=== PATIENT | male | born 1980 | race Caucasian/White ===

== ENCOUNTER 2024-07-12 11:19 | Inpatient (IN) | payer MEDICAID, OTHER ==
[2024-07-12 12:31] LABS: Basophils % (A) 0 %; Eosinophils # (A) 0.1 k/uL (0-0.7); Eosinophils % (A) 1 %; HCT 44.4 % (39.0-53.0); HGB 14.8 gm/dL (13.0-17.5); Lymphocytes # (A) 1.4 k/uL (1.0-4.8); Lymphocytes % (A) 13 %; MCH 32.9 pg (25.0-35.0); MCHC 33.3 g/dL (31.0-37.0); MCV 98.6 fL (80.0-100.0); Mean Platelet Volume 7.1; Monocytes # (A) 0.5 k/uL (0-1.0); Monocytes % (A) 4 %; Neutrophils # (A) 8.4 k/uL (1.3-7.7); Neutrophils % (A) 79 %; Platelet Count 345 k/uL (150-450); RDW 12.3 % (11.5-15.5); WBC 10.7 k/uL (3.8-10.6)
[2024-07-12 12:31] LABS: Amphetamine Screen,Urine Not Detected (NotDetected); Barbiturate Screen,Urine Not Detected (NotDetected); Benzodiazepines Screen,Urine Not Detected (NotDetected); Cocaine Screen,Urine Not Detected (NotDetected); Methadone Screen, Urine Not Detected (NotDetected); Opiate Screen,Urine Not Detected (NotDetected); Oxycodone Screen, Urine Not Detected (NotDetected); Phencyclidine Screen,Urine Not Detected (NotDetected); Tricyclic Antidepressant,Urine Detected (NotDetected); Urn Cannabinoid Scrn Not Detected (NotDetected)
[2024-07-12 12:32] LABS: Appearance,Urine Clear (Clear); Bilirubin,Urine Negative (Negative); Blood,Urine Negative (Negative); Color,Urine Colorless; Glucose,Urine (UA) Negative (Negative); Ketones,Urine Negative (Negative); Leukocyte Esterase,Urine Negative (Negative); Nitrite,Urine Negative (Negative); PH, Urine 6.5 (5.0-8.0); Protein,Urine Negative (Negative); Specific Gravity,Urine 1.007 (1.001-1.035); Urobilinogen,Urine <2.0 mg/dL (<2.0)
[2024-07-12 12:46] LABS: ALT 28 U/L (4-49); AST 26 U/L (17-59); African American GFR (CKD) >90 (>60 ml/min/1.73 sqM); Albumin 4.3 g/dL (3.5-5.0); Alkaline Phosphatase 84 U/L (38-126); Anion Gap 4 mmol/L; Blood Urea Nitrogen 5 mg/dL (9-20); Calcium 9.7 mg/dL (8.4-10.2); Carbon Dioxide 24 mmol/L (22-30); Chloride 111 mmol/L (98-107); Glucose 103 mg/dL (74-99); Non-African American GFR(CKD) >90 (>60 ml/min/1.73 sqM); Potassium 4.1 mmol/L (3.5-5.1); Sodium 139 mmol/L (137-145); Total Bilirubin 0.6 mg/dL (0.2-1.3); Total Protein 6.7 g/dL (6.3-8.2)
[2024-07-12] MEDS: LORazepam 2 MG/ML INJ IV STA (12:56)
[2024-07-12] MEDS: SODIUM CHLORIDE 0.9% 1,000 ML IV STA (12:56)
[2024-07-12] MEDS: AMIODARONE 200 MG TAB PO STA (12:56)
--- NOTE | 2024-07-12 12:56 | XR ---
EXAMINATION TYPE: XR chest 2V DATE OF EXAM: 07/12/2024 12:42 PM CLINICAL INDICATION: Male, 44 years old with history of afib; [facility] COMPARISON: None TECHNIQUE: XR chest 2V Frontal view of the chest. FINDINGS: Lungs/Pleura: There is no evidence of pleural effusion, focal consolidation, or pneumothorax. Pulmonary vascularity: Unremarkable. Heart/mediastinum: Cardiomediastinal silhouette is unremarkable. Musculoskeletal: No acute osseous pathology. IMPRESSION: No acute cardiopulmonary disease/process. [facility], , 07/12/2024 12:54 PM
[2024-07-12] MEDS ORDERED: LORazepam 2 MG/ML INJ IV PRN ×3 (14:38)
--- NOTE | 2024-07-12 14:39 | ED ---
General Adult HPI - General Chief complaint: Psychiatric Symptoms Stated complaint: mental health Time Seen by Provider: 07/12/24 11:29 Source: patient, RN notes reviewed, old records reviewed Mode of arrival: ambulatory Limitations: no limitations - History of Present Illness Initial comments: Patient is a 44-year-old male who presents emergency department for psychiatric evaluation. He is having suicidal ideations with plans of cutting his own wrist. States has been worse over the last few days. Has had prior attempt of self injuring behavior. Denies drug use. Is currently in toxic with alcohol. Has a history of atrial fibrillation hypertension is noncompliant with medications. States he is on amiodarone 200 mg daily which will be provided to him. Has no other acute complaints. Denies homicidal ideations, times complaints. Denies hallucinations. Presents for further evaluation. No history of alcohol withdrawals. - Related Data Home Medications Medication Instructions Recorded Confirmed Atorvastatin [Lipitor] 20 mg PO HS 07/12/24 07/12/24 Hydrocortisone Cream 1 applic TOPICAL QID PRN 07/12/24 07/12/24 [Hydrocortisone 2.5% Cream] [place] Carbonate ER [Lithobid] 450 mg PO BID 07/12/24 07/12/24 Lurasidone HCl [Latuda] 120 mg PO W/SUPPER 07/12/24 07/12/24 Metoprolol Succinate [Toprol XL] 50 mg PO DAILY 07/12/24 07/12/24 Naloxone HCl [Narcan] 4 mg NASAL DIRECTED PRN 07/12/24 07/12/24 Nicotine 21Mg/24Hr Patch [Habitrol] 1 patch TRANSDERM DAILY PRN 07/12/24 07/12/24 QUEtiapine FUMARATE [SEROquel] 600 mg PO HS 07/12/24 07/12/24 QUEtiapine [SEROquel] 100 mg PO BID@0900,1500 07/12/24 07/12/24 Sennosides [Senokot] 8.6 mg PO DAILY 07/12/24 07/12/24 Tamsulosin HCl [Flomax] 0.4 mg PO DAILY 07/12/24 07/12/24 buPROPion SR [Wellbutrin SR] 300 mg PO DAILY 07/12/24 07/12/24 polyethylene glycoL 3350 [Miralax] 17 gm PO BID PRN 07/12/24 07/12/24 Amiodarone [Cordarone] 200 mg PO DAILY 07/13/24 07/13/24 Allergies Allergy/AdvReac Type Severity Reaction Status Date / Time No Known Allergies Allergy Verified 07/12/24 14:22 Review of Systems ROS Statement: Those systems with pertinent positive or pertinent negative responses have been documented in the HPI. Review of Systems: CONST: Denies fever EYES: Denies blurry vision ENT: Denies nasal congestion C/V: Denies Chest pain RESP: Denies shortness of breath GI: Denies abdominal pain : Denies dysuria SKIN: Denies rash. MSK: Denies joint pain. NEURO: Denies headache ROS Other: All systems not noted in ROS Statement are negative. Past Medical History Past Medical History: Atrial Fibrillation History of Any Multi-Drug Resistant Organisms: None Reported Past Surgical History: Cholecystectomy Past Psychological History: Anxiety, Depression, PTSD Smoking Status: Current every day smoker Past Alcohol Use History: None Reported Past Drug Use History: None Reported General Exam - General Exam Comments Initial Comments: General: Appears in toxic with alcohol. No evidence of alcohol withdrawals. HEAD: Normal with no signs of head trauma. EYES: PERRLA, EOMI, conjunctiva normal, no discharge. ENT: Hearing grossly intact, normal oropharynx. RESPIRATORY: Clear breath sounds bilaterally. No wheezes, rales, or rhonchi. C/V: Tachycardic. S1 and S2 auscultated, no edema, peripheral pulses 2+ and intact throughout ABD: Abd is soft, nontender, nondistended EXT: no obvious deformity SKIN: No rashes or lesions observed on exposed skin. NEURO: Alert and oriented x 4. Limitations: no limitations Course Vital Signs 07/12/24 07/12/24 07/12/24 11:22 12:35 12:51 Temperature 97.7 F 97.6 F Pulse Rate 130 H 105 H 105 H Respiratory 18 18 19 Rate Blood Pressure 145/89 122/84 123/97 O2 Sat by Pulse 98 100 98 Oximetry 07/12/24 16:30 Temperature 97.9 F Pulse Rate 103 H Respiratory 16 Rate Blood Pressure 124/90 O2 Sat by Pulse 99 Oximetry Medical Decision Making - Medical Decision Making Was pt. sent in by a medical professional or institution (, PA, STRIKE PLATE ATTACHER, urgent care, hospital, or skilled nursing...) When possible be specific @ -No Did you speak to anyone other than the patient for history (EMS, parent, family, police, friend...)? What history was obtained from this source @ -No Did you review nursing and triage notes (agree or disagree)? Why? @ -I reviewed and agree with nursing and triage notes Were old charts reviewed (outside hosp., previous admission, EMS record, old EKG, old radiological studies, urgent care reports/EKG's, skilled nursing records)? Report findings @ -No old charts were reviewed Differential Diagnosis (chest pain, altered mental status, abdominal pain women, abdominal pain men, vaginal bleeding, weakness, fever, dyspnea, syncope, headache, dizziness, GI bleed, back pain, seizure, CVA, palpatations, mental health, musculoskeletal)? @ -Differential Mental Health Depression, anxiety, bipolar, psychosis, schizophrenia, borderline personality, situational depression, adjustment disorder, behavioral disorder, brain tumor, malingering, substance abuse, encephalopathy, medication reaction, dementia, hypothyroidism, degenerative neurologic disorder, lupus.... This is not meant to be all-inclusive list EKG interpreted by me (3pts min.). @ -As above X-rays interpreted by me (1pt min.). @ -Chest x-ray shows no obvious acute cardiopulmonary process. CT interpreted by me (1pt min.). @ -None done U/S interpreted by me (1pt. min.). @ -None done What testing was considered but not performed or refused? (CT, X-rays, U/S, labs)? Why? @ -None What meds were considered but not given or refused? Why? @ -None Did you discuss the management of the patient with other professionals (professionals i.e. , PA, STRIKE PLATE ATTACHER, lab, RT, psych nurse, aids social worker, community relations liaison, teacher, uniform patrol police officer, caser shoe parts)? Give summary @ -EPS notified of the consult. Was smoking cessation discussed for >3mins.? @ -No Was critical care preformed (if so, how long)? @ -No Were there social determinants of health that impacted care today? How? (Homelessness, low income, unemployed, alcoholism, drug addiction, transportation, low edu. Level, literacy, decrease access to med. care, senior living, rehab)? @ -No Was there de-escalation of care discussed even if they declined (Discuss DNR or withdrawal of care, Hospice)? DNR status @ -No What co-morbidities impacted this encounter? (DM, HTN, Smoking, COPD, CAD, Cancer, CVA, ARF, Chemo, Hep., AIDS, mental health diagnosis, sleep apnea, morbid obesity)? @ -None Was patient admitted / discharged? Hospital course, mention meds given and route, prescriptions, significant lab abnormalities, going to OR and other pertinent info. @ -Patient presents emergency department complaining of suicidal ideations. Is tachycardic. Also acutely toxic with alcohol. Sitter ordered. Suicide precautions ordered. We will obtain basic labs. He was in agreement this plan. Given a dose of his normal amiodarone as well as a dose of Ativan and fluids. Laboratory studies are unremarkable. EKG shows sinus tachycardia. No evidence of atrial fibrillation. I discussed results with the patient. He will be medically cleared when sober. Patient's BAT is elevated at 0.225. EPS will evaluate the patient when he is sober. Disposition pending EPS evaluation. Patient placed on CIWA protocol. Undiagnosed new problem with uncertain prognosis? @ -No Drug Therapy requiring intensive monitoring for toxicity (Heparin, Nitro, Insulin, Cardizem)? @ -No Were any procedures done? @ -No Diagnosis/symptom? @ -Alcohol intoxication, suicidal ideation Acute, or Chronic, or Acute on Chronic? @ -Acute Uncomplicated (without systemic symptoms) or Complicated (systemic symptoms)? @ -Complicated Side effects of treatment? @ -No Exacerbation, Progression, or Severe Exacerbation? @ -No Poses a threat to life or bodily function? How? (Chest pain, [place], MT, pneumonia, PE, COPD, DKA, ARF, appy, cholecystitis, CVA, Diverticulitis, Homicidal, Suici laure, threat to staff... and all critical care pts) @ -Potentially, yes - Lab Data Result diagrams: 07/12/24 12:24 07/12/24 12:24 Lab Results 07/12/24 07/12/24 07/12/24 Range/Units 11:50 11:50 12:24 WBC 10.7 H (3.8-10.6) k/uL RBC 4.50 (4.30-5.90) m/uL Hgb 14.8 (13.0-17.5) gm/dL Hct 44.4 (39.0-53.0) % MCV 98.6 (80.0-100.0) fL MCH 32.9 (25.0-35.0) pg MCHC 33.3 (31.0-37.0) g/dL RDW 12.3 (11.5-15.5) % Plt Count 345 (150-450) k/uL MPV 7.1 Neutrophils % 79 % Lymphocytes % 13 % Monocytes % 4 % Eosinophils % 1 % Basophils % 0 % Neutrophils # 8.4 H (1.3-7.7) k/uL Lymphocytes # 1.4 (1.0-4.8) k/uL Monocytes # 0.5 (0-1.0) k/uL Eosinophils # 0.1 (0-0.7) k/uL Basophils # 0.0 (0-0.2) k/uL Sodium (137-145) mmol/L Potassium (3.5-5.1) mmol/L Chloride (98-107) mmol/L Carbon Dioxide (22-30) mmol/L Anion Gap mmol/L BUN (9-20) mg/dL Creatinine (0.66-1.25) mg/dL Est GFR (CKD-EPI)AfAm (>60 ml/min/1.73 sqM) Est GFR (CKD-EPI)NonAf (>60 ml/min/1.73 sqM) Glucose (74-99) mg/dL Calcium (8.4-10.2) mg/dL Magnesium (1.6-2.3) mg/dL Total Bilirubin (0.2-1.3) mg/dL AST (17-59) U/L ALT (4-49) U/L Alkaline Phosphatase (38-126) U/L Total Protein (6.3-8.2) g/dL Albumin (3.5-5.0) g/dL Urine Color Colorless Urine Appearance Clear (Clear) Urine pH 6.5 (5.0-8.0) Ur Specific [place] 1.007 (1.001-1.035) Urine Protein Negative (Negative) Urine Glucose (UA) Negative (Negative) Urine Ketones Negative (Negative) Urine Blood Negative (Negative) Urine Nitrite Negative (Negative) Urine Bilirubin Negative (Negative) Urine Urobilinogen <2.0 (<2.0) mg/dL Ur Leukocyte Esterase Negative (Negative) Urine Opiates Screen Not Detected (NotDetected) Ur Oxycodone Screen Not Detected (NotDetected) Urine Methadone Screen Not Detected (NotDetected) Ur Barbiturates Screen Not Detected (NotDetected) U Tricyclic Antidepress Detected H (NotDetected) Ur Phencyclidine Scrn Not Detected (NotDetected) Ur Amphetamines Screen Not Detected (NotDetected) U Methamphetamines Scrn Not Detected (NotDetected) U Benzodiazepines Scrn Not Detected (NotDetected) Urine Cocaine Screen Not Detected (NotDetected) U Marijuana (THC) Screen Not Detected (NotDetected) SARS-CoV-2 (PCR) (Not Detectd) 07/12/24 07/12/24 Range/Units 12:24 20:38 WBC (3.8-10.6) k/uL RBC (4.30-5.90) m/uL Hgb (13.0-17.5) gm/dL Hct (39.0-53.0) % MCV (80.0-100.0) fL MCH (25.0-35.0) pg MCHC (31.0-37.0) g/dL RDW (11.5-15.5) % Plt Count (150-450) k/uL MPV Neutrophils % % Lymphocytes % % Monocytes % % Eosinophils % % Basophils % % Neutrophils # (1.3-7.7) k/uL Lymphocytes # (1.0-4.8) k/uL Monocytes # (0-1.0) k/uL Eosinophils # (0-0.7) k/uL Basophils # (0-0.2) k/uL Sodium 139 (137-145) mmol/L Potassium 4.1 (3.5-5.1) mmol/L Chloride 111 H (98-107) mmol/L Carbon Dioxide 24 (22-30) mmol/L Anion Gap 4 mmol/L BUN 5 L (9-20) mg/dL Creatinine 0.84 (0.66-1.25) mg/dL Est GFR (CKD-EPI)AfAm >90 (>60 ml/min/1.73 sqM) Est GFR (CKD-EPI)NonAf >90 (>60 ml/min/1.73 sqM) Glucose 103 H (74-99) mg/dL Calcium 9.7 (8.4-10.2) mg/dL Magnesium 2.0 (1.6-2.3) mg/dL Total Bilirubin 0.6 (0.2-1.3) mg/dL AST 26 (17-59) U/L ALT 28 (4-49) U/L Alkaline Phosphatase 84 (38-126) U/L Total Protein 6.7 (6.3-8.2) g/dL Albumin 4.3 (3.5-5.0) g/dL Urine Color Urine Appearance (Clear) Urine pH (5.0-8.0) Ur Specific [place] (1.001-1.035) Urine Protein (Negative) Urine Glucose (UA) (Negative) Urine Ketones (Negative) Urine Blood (Negative) Urine Nitrite (Negative) Urine Bilirubin (Negative) Urine Urobilinogen (<2.0) mg/dL Ur Leukocyte Esterase (Negative) Urine Opiates Screen (NotDetected) Ur Oxycodone Screen (NotDetected) Urine Methadone Screen (NotDetected) Ur Barbiturates Screen (NotDetected) U Tricyclic Antidepress (NotDetected) Ur Phencyclidine Scrn (NotDetected) Ur Amphetamines Screen (NotDetected) U Methamphetamines Scrn (NotDetected) U Benzodiazepines Scrn (NotDetected) Urine Cocaine Screen (NotDetected) U Marijuana (THC) Screen (NotDetected) SARS-CoV-2 (PCR) Not Detected (Not Detectd) - EKG Data -: EKG Interpreted by Me EKG Comments: 12-lead Electrocardiogram Interpretation Note EKG was reviewed and interpreted by myself. 12-lead ECG performed at 1215 is interpreted by me as revealing sinus tachycardia at a rate of 111 beats per minute. [place] is normal. [place] interval is 152 ms, QRS duration is 90 ms, QTc is 393 ms.. There were no ST or T wave abnormalities to suggest myocardial ischemia or injury. R wave progression across the precordium was satisfactory. By my interpretation this EKG is non-diagnostic for acute ischemia. Disposition Clinical Impression: Suicidal ideation, Alcohol intoxication Disposition: ADMITTED IP TO THIS HOSP Condition: Stable
[2024-07-12] MEDS ORDERED: IBUPROFEN 600 MG TAB PO PRN (21:24)
[2024-07-12] MEDS ORDERED: MAGNESIUM HYDROXIDE 2,400 MG/30 ML CUP PO PRN (21:24)
[2024-07-12] MEDS ORDERED: LORazepam 2 MG/ML INJ IM PRN (21:30)
[2024-07-12] MEDS ORDERED: OLANZapine 10 MG VIAL IM PRN (21:30)
[2024-07-12] MEDS ORDERED: QUEtiapine 100 MG TAB PO SCH (21:45)
[2024-07-12] MEDS: LITHIUM CARBONATE ER 450 MG TABLET.ER PO SCH (22:27)
[2024-07-12] MEDS: QUEtiapine 200 MG TAB PO SCH (22:27)
[2024-07-12] MEDS: LORazepam 1 MG TAB PO PRN (22:27)
[2024-07-12] MEDS: ATORVASTATIN 20 MG TAB PO SCH (22:28)
[2024-07-12] MEDS ORDERED: HYDROCORTISONE 1% CREAM 30 GM TUBE TOPICAL PRN (23:13)
[2024-07-13] MEDS: NICOTINE 21MG/24HR PATCH TRANSDERM SCH (08:41)
[2024-07-13] MEDS: buPROPion SR 150 MG TABLET.ER PO SCH (08:42)
[2024-07-13] MEDS: ACETAMINOPHEN TAB 325 MG TAB PO PRN (08:42)
[2024-07-13] MEDS: METOPROLOL SUCCINATE (ER) 50 MG TAB.ER.24H PO SCH (08:42)
[2024-07-13] MEDS: TAMSULOSIN 0.4 MG CAP.ER.24H PO SCH (08:42)
[2024-07-13] MEDS: SENNOSIDES 8.6 MG TAB PO SCH (08:42)
[2024-07-13] MEDS: QUEtiapine 100 MG TAB PO SCH (08:42)
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
[2024-07-13] MEDS: THIAMINE 100 MG TAB PO SCH (13:25)
[2024-07-13] MEDS: ACAMPROSATE CALCIUM 333 MG TABLET.DR PO SCH (16:13)
[2024-07-13] MEDS: MAG HYDROX/AL HYDROX/SIMETH 355 ML BOTTLE PO PRN (16:53)
[2024-07-13] MEDS: chlordiazePOXIDE 25 MG CAP PO SCH (16:57)
[2024-07-13] MEDS: LURASIDONE 60 MG TAB PO SCH (17:46)
[2024-07-13] MEDS: AMIODARONE 200 MG TAB PO SCH (17:47)
--- NOTE | 2024-07-13 22:59 | HP ---
HISTORY AND PHYSICAL CHIEF COMPLAINT: Major depression. HISTORY OF PRESENT ILLNESS: This is another admission for this 44-year-old gentleman, who came to the emergency room with major depression, and suicidal thoughts. He was also intoxicated. He does have a history of alcoholism. He also has a history of atrial fibrillation. REVIEW OF SYSTEMS: He denies any chest pain, dizziness, shortness of breath, abdominal pain, etc. He is intoxicated. Past medical history, family history, personal and social histories reveal that he is not allergic to any medication. MEDICATIONS: He is on, 1. Tamsulosin. 2. Bupropion. 3. Metoprolol. 4. Atorvastatin. 5. Seroquel. 6. [place]. 7. Lurasidone. The remainder of his history is unremarkable. PHYSICAL EXAMINATION: VITAL SIGNS: Normal. HEAD, EARS, EYES, NOSE, MOUTH, AND THROAT: Normal. CHEST: Clear. CARDIAC: Normal. ABDOMEN: Soft, nontender. EXTREMITIES: Normal. IMPRESSION: 1. Major depression. 2. History of atrial fibrillation. 3. History of bipolar disorder. RECOMMENDATIONS: 1. EKG. 2. Start Campral 666 mg 3 times a day. Thank you respectfully, MMODL / IJN: [id number] /
[2024-07-14 08:57] LABS: Lithium 0.6 mmol/L
--- NOTE | 2024-07-14 11:32 | P.PN ---
Progress Note - Text Progress Note Date: 07/14/24 Interval History: Patient was seen wandering the hallways and was directable and agreeable to sp ramona with conventional underwriter in the office. Today, he states that he is tired. He claims that he is having some mild withdraws from alcohol. He is mildly shaking. He states his mood and anxiety is ok. He is having thoughts of hurting himself, but no one else. He states that he is taking his medications at home, but sometimes he gets sidetracked, and forgets to take them. At this time patient denies homicidal i deations, intent or plan. Patient denies any auditory, visual hallucinations and denies any paranoia or delusions. Patient denies any side effects from the medications and has been compliant with meds. He states that he would like to get into a rehab center MENTAL STATUS EXAM: General Appearance: Patient appears to be older than stated age is alert, directable, and attempts to cooperate. Patient appears to have poor hygiene and unshaven. Behavior: Patient is seated without any agitated behavior Speech: Patient's speech is fluent and nonpressured Mood/Affect: Patient reports their mood is moderately depressed, affect is congruent and constricted Suicidality/Homicidality: Patient denies having any homicidal ideation intent or plan. Endorsed suicidal thoughts with no plan. Perceptions: Patient denies any visual hallucinations and denies any auditory hallucinations Though content/process: There is no evidence of any delusional thought content and thought process is linear and goal-directed. Memory and concentration: AOX3, grossly intact for the purposes of this session. Judgment and insight: Poor judgment and insight, improving mildly Assessment: Bipolar disorder type I most recent episode depressed Posttraumatic stress disorder Generalized anxiety disorder Alcohol use disorder Opiate use disorder in partial remission Tobacco use disorder PLAN: -Patient is admitted under voluntary status to MHU for stabilization of psychiatric symptoms and safety. Patient has has signed adult voluntary form and medication consent and is placed in patient's chart. -Medications : Latuda 120 mg nightly for bipolar disorder, Wellbutrin 300 mg daily for depression, lithium 450 mg twice daily for bipolar disorder, change Seroquel 700 mg nightly for bipolar/anxiety, D/C daily doses of Seroquel, decrease Librium 20 mg tid for alcohol withdraw, with plan to taper down over the weekend. -Ativan and Haldol PRN for agitation/aggression -thiamine, MVM for etoh use -CIWA protocol with Ativan PRN for ETOH withdrawal. -[place] level Wednesday morning -NRT -nicotine patch - on board for discharge planning. Encourage patient to participate in groups to work on coping skills. Waiting on approval from [place].
[2024-07-14] MEDS: QUEtiapine 200 MG TAB PO SCH (20:35)
[2024-07-15] MEDS: OLANZapine 5 MG TAB PO PRN (12:13)
--- NOTE | 2024-07-15 15:52 | P.PN ---
Progress Note - Text Progress Note Date: 07/15/24 Interval History: Patient was seen bedside this afternoon. he states that his mood is "tired". He reports feeling better in terms of withdrawal today. He is agreeable with continuing the Librium taper. He feels that his thoughts are slowed currently. He endorses fair sleep last night. He reports having been his meals. He denies any other concerns at this time. He is continuing to be on board with going to [place] following discharge. At this time patient denies homicidal ideations, intent or plan. He denies suicidal ideation currently. Patient denies any auditory, visual hallucinations and denies any paranoia or delusions. Patient denies any side effects from the medications and has been compliant with meds. Vital Signs Temp 97.2 F L 07/15/24 15:17 Pulse 83 07/15/24 15:17 Resp 18 07/15/24 06:30 BP 98/66 07/15/24 15:17 Pulse Ox 96 07/15/24 15:17 FiO2 MENTAL STATUS EXAM: General Appearance: Patient appears to be older than stated age is alert, directable, and attempts to cooperate. Patient appears to have poor hygiene and unshaven. Behavior: Patient is seated without any agitated behavior, mild left action hand tremor Speech: Patient's speech is fluent and nonpressured Mood/Affect: Patient reports their mood is moderately depressed, affect is congruent and constricted Suicidality/Homicidality: Patient denies having any homicidal ideation intent or plan. Denies suicidal ideation Perceptions: Patient denies any visual hallucinations and denies any auditory hallucinations Though content/process: There is no evidence of any delusional thought content and thought process is linear and goal-directed. Memory and concentration: AOX3, grossly intact for the purposes of this session. Judgment and insight: Poor judgment and insight, improving mildly Assessment: Bipolar disorder type I most recent episode depressed Posttraumatic stress disorder Generalized anxiety disorder Alcohol use disorder Opiate use disorder in partial remission Tobacco use disorder PLAN: -Patient is admitted under voluntary status to MHU for stabilization of psychiatric symptoms and safety. Patient has has signed adult voluntary form and medication consent and is placed in patient's chart. -Medications : Latuda 120 mg nightly for bipolar disorder, Wellbutrin 300 mg daily for depression, lithium 450 mg twice daily for bipolar disorder, Seroquel 700 mg nightly for bipolar/anxiety, decrease Librium to 15 mg tid for alcohol withdraw, with plan to taper down over the weekend. -Ativan and Zyprexa PRN for agitation/aggression -thiamine, MVM for etoh use -CIWA protocol with Ativan PRN for ETOH withdrawal. -[place] level Wednesday morning -NRT -nicotine patch -SW on board for discharge planning. Encourage patient to participate in groups to work on coping skills. Waiting on approval from [place].
[2024-07-15] MEDS: chlordiazePOXIDE 5 MG CAPSULE PO SCH (17:10)
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
--- NOTE | 2024-07-17 10:27 | P.PN ---
Progress Note - Text Progress Note Date: 07/17/24 Interval History: Patient was seen [wandering the hallways] and was directable and agreeable to speak with typewriter mechanic in the office. He states that he is ok today. He states he had an ok weekend. He states his mood has been stable, but he is endorsing anxiety at a 10. He claims to be having withdraw symptoms still. States that he is shaking. He endorses good sleep, and states his appetite is good. At this time patient denies any suicidal or homicidal ideations, intent or plan. Patient denies any auditory, visual hallucinations and denies any paranoia or delusions. Patient denies any side effects from the medications and has been compliant with meds. claims that he is willing to still go to rehab. MENTAL STATUS EXAM: General Appearance: Patient appears to be older than stated age is alert, directable, and attempts to cooperate. Patient appears to have poor hygiene and unshaven. Behavior: Patient is seated without any agitated behavior. improving mildly Speech: Patient's speech is fluent and nonpressured Mood/Affect: Patient reports their mood is ok, affect is congruent and constrict ed, improving mildly Suicidality/Homicidality: Patient denies having any homicidal ideation intent or plan. Denies suicidal ideation Perceptions: Patient denies any visual hallucinations and denies any auditory hallucinations Though content/process: There is no evidence of any delusional thought content and thought process is linear and goal-directed. Memory and concentration: AOX3, grossly intact for the purposes of this session. Judgment and insight: improving mildly Assessment: Bipolar disorder type I most recent episode depressed Posttraumatic stress disorder Generalized anxiety disorder Alcohol use disorder Opiate use disorder in partial remission Tobacco use disorder PLAN: -Patient is admitted under voluntary status to [facility] for stabilization of psychiatric symptoms and safety. Patient has has signed adult voluntary form and medication consent and is placed in patient's chart. -Medications : Latuda 120 mg nightly with food for bipolar disorder, Wellbutrin 300 mg daily for depression, lithobid 450 mg twice daily for bipolar disorder, Seroquel 700 mg nightly for bipolar/anxiety, decrease Librium to 10 mg bid for alcohol withdrawal with the last dose being tomorrow. Acamprosate 666mg tid for alcohol cravings -awaiting [place] level this morning -Ativan and Zyprexa PRN for agitation/aggression -thiamine, MVM for etoh use -CIWA protocol with Ativan PRN for ETOH withdrawal. Monitor vital signs. Has been scoring low -NRT -nicotine patch -SW on board for discharge planning. Encourage patient to participate in groups to work on coping skills. Waiting on approval from [facility]. Likely discharge tomorrow vs Wednesday.
[2024-07-18 07:22] VITALS: PULSE 73; RESP 14; TEMP 97.6
[2024-07-18 08:24] VITALS: BP 111/77
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
== END 2024-07-18 12:05 | disposition home or self-care (01) | DRG 753 ==
LOC: EC 11:19 → 3MHU 21:20
PROVIDERS: ADMIT Psychiatry & Neurology Psychiatry; ATTEND Psychiatry & Neurology Psychiatry
DX: F31.4 Bipolar disorder, current episode depressed, severe, without psychotic features (principal); F41.1 Generalized anxiety disorder; F43.10 Post-traumatic stress disorder, unspecified; F10.229 Alcohol dependence with intoxication, unspecified; F10.239 Alcohol dependence with withdrawal, unspecified; F11.11 Opioid abuse, in remission; F17.210 Nicotine dependence, cigarettes, uncomplicated; I10 Essential (primary) hypertension; I48.91 Unspecified atrial fibrillation; R45.851 Suicidal ideations; Z56.0 Unemployment, unspecified; Z79.899 Other long term (current) drug therapy; Z91.148 Patient's other noncompliance with medication regimen for other reason; Z91.51 Personal history of suicidal behavior; Z91.52 Personal history of nonsuicidal self-harm; Z11.52 Encounter for screening for COVID-19
CPT/HCPCS: 36415; 71046; 80053; 80178; 80306; 81003; 82075; 83036; 83735; 84443; 85025; 87635; 93005; 96361; 96374; 99285